=== PATIENT | male | born 1980 | race Caucasian/White ===

== ENCOUNTER 2016-03-28 10:09 | Emergency (ER) | payer OTHER ==
[~2016-03-28 10:09] MED LIST: BIAXIN500 M1 PO; CLEOCIN HCL300 MG PO; CLINDAMYCIN HC300 M1 PO; CLINDAMYCIN HY300 MG PO; DICLOFENAC POTA50 M1 PO; FLEXERIL10 MG PO; GUAIFENESIN-COD10 ML PO; HYDROCODONE/ACE1 TA1 PO; IBUPROFEN600 MG PO; IBUPROFEN800 M1 PO; IBUPROFEN800 MG PO; MEDROL4 M2 PO; MOBIC 15MG15 MG PO; MULTIVITAMIN1 TAB PO; NORCO 5-325 TA1 EACH PO; PERCOCET 325 MG-5 MG PO; PERCOCET 325 MG1 TA2 PO; PERCOCET 5-3251 EACH PO; TRAMADOL50 MG PO; VENTOLIN HFA18 GM INH; VICODIN 300 MG-1 TAB PO
--- NOTE | 2016-03-28 10:29 | ED MVC/FALL/TRAUMA COMPLAINT ---
History of Present Illness General Chief Complaint: Fall Stated Complaint: FALL/LBP RT ANKLE PAIN Source: patient Exam Limitations: no limitations Vital Signs & Intake/Output Vital Signs & Intake/Output Vital Signs Date Time Temp Pulse Resp B/P Pulse O2 O2 Flow FiO2 Ox Delivery Rate 03/28 1154 86 120/84 03/28 1014 88 16 118/82 98 Room Air Allergies Coded Allergies: venom-honey bee (bee venom (honey bee)) (Severe, UNKNOWN 07/15/15) amoxicillin (UNKNOWN 07/15/15) tramadol (10/12/15) Reconcile Medications Clindamycin HCl 300 MG CAPSULE 1 CAP PO 4 TIMES/DAY infection Clindamycin HCl 300 MG CAPSULE 1 CAP PO 4 TIMES/DAY infection Cyclobenzaprine HCl 10 MG TABLET 1 TAB PO QPM PRN MUSCLE sPASM Hydrocodone/Acetaminophen ([place] 5-325 Tablet) 1 EACH TABLET 1-2 TAB PO Q4-6 PRN PRN PAIN ten...[id number] Ibuprofen 800 MG TABLET 1 TAB PO TID PRN PAIN Ibuprofen 800 MG TABLET 1 TAB PO 4 TIMES/DAY pain Oxycodone HCl/Acetaminophen (Percocet 5-325 MG Tablet) 5 MG-325 MG TABLET 1 TAB PO BID PRN PAIN Oxycodone HCl/Acetaminophen (Percocet 5-325 MG Tablet) 1 EACH TABLET 1 TAB PO 4XDP PRN PAIN TEN...[id number] Triage Note: TRIAGE; PT TO ED S/P SLIP AND FALL ONTO HIS LOWER BACK. DENIES ANY HEAD STRIKE OR LOC. STATES PAIN IS WORSE WITH MOVEMENT. USING MOTRIN WITH NO RELIEF. Triage Nurses Notes Reviewed? yes HPI: 35-year-old male who [facility] a fall that occurred yesterday while walking on ice. He reports he slipped and fell onto his back and twisting his right foot. He is complaining of low back pain, aching sensation. He denies any numbness and tingling or incontinence issues. He rates the pain in his low back at 10 on a 10 worse with bending, twisting. He is also reporting right foot pain worse with palpation and movement. He can ambulate but is hard to put pressure on his foot. Pain is an achy sensation same 10 out of 10 (KARIME UREÑA,JOHN) Past History Travel History Traveled to [place] past 21 day No Medical History Any Pertinent Medical History? 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 No (JOHN SCHAFFER APRN) Review of Systems Review of Systems Constitutional: Reports: no symptoms. Eyes: Reports: no symptoms. Ears, Nose, Throat, Mouth: Reports: no symptoms. Respiratory: Reports: no symptoms. Cardiovascular: Reports: no symptoms. Gastrointestinal/Abdominal: Reports: no symptoms. Genitourinary: Reports: no symptoms. Musculoskeletal: Reports: see HPI, back pain, joint pain. Skin: Reports: no symptoms. Neurological/Psychological: Reports: no symptoms. All Other Systems: Reviewed and Negative (JOHN SCHAFFER APRN) Physical Exam Physical Exam General Appearance: well developed/nourished, alert, awake, mild distress Head: atraumatic, normal appearance Eyes: Bilateral: normal appearance, PERRL, EOMI. Ears, Nose, Throat, Mouth: hearing grossly normal, moist mucous membrane, Tympanic normal Neck: normal inspection, supple, full range of motion, normal alignment Respiratory: normal breath sounds, chest non-tender, no respiratory distress Cardiovascular: regular rate/rhythm Peripheral Pulses: 2+ radial (R), 2+ radial (L) Gastrointestinal: normal bowel sounds, soft, non-tender Back: normal inspection, decreased range of motion, muscle spasm, no vertebral tenderness Extremities: right foot see diagram Neurologic/Psych: no motor/sensory deficits, awake, alert, oriented x 3, normal gait, normal mood/affect Skin: intact, normal color, warm/dry Diagram Feet, Bilateral: 1) Erythema, tenderness Core Measures ACS in differential dx? No Severe Sepsis Present: No Septic Shock Present: No (JOHN SCHAFFER APRN) Progress Differential Diagnosis: C/T/L spine injury, ext injury Plan of Care: Percocet given for pain 1, xrays done which were negative. Diagnostic Imaging: Viewed by Me: Radiology Read. Discussed w/RAD: Radiology Read. Radiology Impression: no fracture, no dislocation, no foreign body seen, see results below. Comments: PATIENT: SAMUEL YAO PRESENT AGE: 35 PATIENT ACCOUNT NO: [id number] : 80 LOCATION: [facility] ORDERING PHYSICIAN: JOHN SCHAFFER APRN SERVICE DATE: 03/28/16 EXAM TYPE: RAD - XRY-FOOT COMPLETE, R EXAMINATION: RIGHT FOOT 3 VIEWS CLINICAL INFORMATION: Right foot pain. COMPARISON: None. TECHNIQUE: AP, lateral, oblique views of the right foot were obtained. FINDINGS: There are no fractures or dislocations. There is no significant soft tissue swelling. No ankle joint effusion is identified. IMPRESSION: Unremarkable right foot radiographs. DICTATED BY: KACY LLOYD MD DATE/TIME DICTATED:03/28/161118 PROPOSAL DEVELOPMENT MANAGER:JEFF DATE/TIME TRANSCRIBED:03/28/161118 CONFIDENTIAL, DO NOT COPY WITHOUT APPROPRIATE AUTHORIZATION. <Electronically signed in Other Vendor System> SIGNED BY: KACY LLOYD MD 03/28/161122 PATIENT: SAMUEL YAO PRESENT AGE: 35 PATIENT ACCOUNT NO: [id number] : 80 LOCATION: [facility] ORDERING PHYSICIAN: JOHN SCHAFFER APRN SERVICE DATE: 03/28/16 EXAM TYPE: RAD - XRY-LUMBOSACRAL SPINE 4 VIEWS EXAMINATION: LUMBOSACRAL SPINE 3 VIEWS CLINICAL INFORMATION: Low back pain after fall. COMPARISON: None. TECHNIQUE: AP, lateral, spot lateral views of the lumbosacral spine are provided. FINDINGS: There are no fractures. The lumbar vertebrae are in normal alignment. Disc heights and vertebral body heights are well-preserved. IMPRESSION: Unremarkable lumbosacral spine series. DICTATED BY: KACY LLOYD MD DATE/TIME DICTATED:03/28/161116 PROPOSAL DEVELOPMENT MANAGER:JEFF DATE/TIME TRANSCRIBED:03/28/161116 CONFIDENTIAL, DO NOT COPY WITHOUT APPROPRIATE AUTHORIZATION. <Electronically signed in Other Vendor System> SIGNED BY: KACY LLOYD MD 03/28/161120 (JOHN SCHAFFER APRN) Departure Departure Time of Disposition: 1148 Disposition: HOME OR SELF CARE Condition: Stable Clinical Impression Primary Impression: Right foot sprain Qualifiers: Encounter type: initial encounter Qualified Code: S93.601A - Unspecified sprain of right foot, initial encounter Secondary Impressions: Low back pain Qualifiers: Chronicity: acute Back pain laterality: bilateral Sciatica presence : without sciatica Qualified Code: M54.5 - Low back pain Referrals: DIOGO TOTH,RC LI MD,MASON Molina Additional Instructions: Please use ibuprofen 800 mg 3 times a day has needed for mild to moderate pain please take with food. Use Percocet as needed for more severe pain. Please use Flexeril at night for muscle spasms IN back. Please do not drive or operate heavy machinery while taking the Flexeril or Percocet. Please use ice to right foot 3-4 times a day for the next 3 days. Please follow-up with Dr. Li or Dr. Rojas this coming week. Return to the emergency department for any increased pain, swelling to right foot or increased pain to back along with numbness tingling in legs. Or any concerning symptoms. Departure Forms: Customer Survey General Discharge Information Prescriptions: Current Visit Scripts Cyclobenzaprine HCl 1 TAB PO QPM PRN MUSCLE sPASM #10 TAB Oxycodone HCl/Acetaminophen (Percocet 5-325 MG Tablet) 1 TAB PO BID PRN PAIN #10 TAB Ibuprofen 1 TAB PO TID PRN PAIN #30 TAB (JOHN SCHAFFER APRN) PA/CONSULTING UTILITY FORESTER Co-Sign Statement Statement: ED Attending supervision documentation- [] I saw and evaluated the patient. I have also reviewed all the pertinent lab results and diagnostic results. I agree with the findings and the plan of care as documented in the PA's/CONSULTING UTILITY FORESTER's documentation. x I have reviewed the ED Record and agree with the PA's/CONSULTING UTILITY FORESTER's documentation. [] Additions or exceptions (if any) to the PAs/CONSULTING UTILITY FORESTER's note and plan are summarized below: [] (BREONNA TOTH,RACHID)
--- NOTE | 2016-03-28 11:21 | RADIOLOGY REPORT ---
EXAMINATION: LUMBOSACRAL SPINE 3 VIEWS CLINICAL INFORMATION: Low back pain after fall. COMPARISON: None. TECHNIQUE: AP, lateral, spot lateral views of the lumbosacral spine are provided. FINDINGS: There are no fractures. The lumbar vertebrae are in normal alignment. Disc heights and vertebral body heights are well-preserved. IMPRESSION: Unremarkable lumbosacral spine series.
--- NOTE | 2016-03-28 11:23 | RADIOLOGY REPORT ---
EXAMINATION: RIGHT FOOT 3 VIEWS CLINICAL INFORMATION: Right foot pain. COMPARISON: None. TECHNIQUE: AP, lateral, oblique views of the right foot were obtained. FINDINGS: There are no fractures or dislocations. There is no significant soft tissue swelling. No ankle joint effusion is identified. IMPRESSION: Unremarkable right foot radiographs.
[2016-03-28] MEDS ORDERED: IBUPROFEN800 M1 PO (11:48)
[2016-03-28] MEDS ORDERED: CYCLOBENZAPRINE10 M1 PO (11:48)
[2016-03-28] MEDS ORDERED: PERCOCET 5-3251 EACH PO (11:48)
[2016-03-28 11:54] VITALS: BP 120/84
== END 2016-03-28 11:54 ==
LOC: ERH 10:09
DX: S93.601A Unspecified sprain of right foot, initial encounter (principal); M54.5 Low back pain; W00.0XXA Fall on same level due to ice and snow, initial encounter
CPT/HCPCS: 72110; 73630-RT

== ENCOUNTER 2016-04-10 00:59 | Emergency (ER) | payer OTHER ==
[~2016-04-10 00:59] MED LIST changes: +CYCLOBENZAPRINE10 M1 PO
[2016-04-10] MEDS ORDERED: IBUPROFEN800 M1 PO (03:07)
[2016-04-10] MEDS ORDERED: PERCOCET 5-3251 EACH PO (03:07)
[2016-04-10] MEDS ORDERED: BACLOFEN10 M1 PO (03:07)
--- NOTE | 2016-04-10 03:09 | ED NECK/BACK PAIN COMPLAINT ---
History of Present Illness General Chief Complaint: Low Back Pain/Injury Stated Complaint: BACK PAIN "IT'S KILLING ME SEEN HERE BEFORE" Source: patient, old records Exam Limitations: no limitations Vital Signs & Intake/Output Vital Signs & Intake/Output Vital Signs Date Time Temp Pulse Resp B/P Pulse O2 O2 Flow FiO2 Ox Delivery Rate 04/10 0130 97 Room Air 04/10 0121 98.0 77 20 132/87 97 Room Air Allergies Coded Allergies: venom-honey bee (bee venom (honey bee)) (Severe, UNKNOWN 04/10/16) amoxicillin (UNKNOWN 04/10/16) tramadol (04/10/16) Reconcile Medications No Known Home Medications Triage Note: TRIAGE: PATIENT TO ER FROM HOME REPORTING +LOW BACK INTO L BUTT/THIGH PAIN S/P SLIP AND FAL OF ICE FEWS WEEKS AGO. REPORTS "HAD AN XRAY AND IT WAS NEGATIVE, BUT LIFTED STUFF TODAY AND NOW IT'S MUCH WORSE." ICE PACK IN PLACE. AWAITING MD NAZARIO. Triage Nurses Notes Reviewed? yes Onset: Last week Duration: week(s):, constant, continues in ED Timing: recent history Quality/Severity: moderate, radiation Location: lumbar spine, paraspinous muscles Radiation: buttocks Context: fall/near fall Method of Injury: fall Loss of Consciousness: no loss of consciousness Modifying Factors: movement, pain medication Associated Symptoms: lower back pain, muscle spasm HPI: Less than 2 weeks prior to admission patient slipped on the ice and fell on his back. He was seen in the ED with negative x-rays. The sharp moderate pain persists worse with movement turning bending moderate to severe with radiation to his left buttock. he denies fever chills nausea vomiting diarrhea abdominal pain chest pain shortness breath headache dysuria rash bleeding change in motor sensory function change in bowel bladder habit Past History Travel History Traveled to [place] past 21 day No Medical History Any Pertinent Medical History? 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 No Review of Systems Review of Systems Constitutional: Reports: no symptoms. Eyes: Reports: no symptoms. Ears, Nose, Throat, Mouth: Reports: no symptoms. Respiratory: Reports: no symptoms. Cardiovascular: Reports: no symptoms. Gastrointestinal/Abdominal: Reports: no symptoms. Musculoskeletal: Reports: see HPI, back pain. Skin: Reports: no symptoms. Neurological/Psychological: Reports: no symptoms. All Other Systems: Reviewed and Negative Physical Exam Physical Exam General Appearance: well developed/nourished, alert, awake, anxious, mild distress Head: atraumatic Eyes: Bilateral: PERRL, EOMI. Ears, Nose, Throat, Mouth: hearing grossly normal Neck: normal inspection, supple, full range of motion, normal alignment Respiratory: normal breath sounds Cardiovascular: regular rate/rhythm Peripheral Pulses: 4+ carotid (R), 4+ carotid (L) Gastrointestinal: normal bowel sounds, soft, non-tender, no organomegaly Back: normal inspection, decreased range of motion, muscle spasm, no vertebral tenderness Extremities: non-tender, normal range of motion Straight Leg Raising: Right: Pain at ____ degrees (10). Left: Pain at ____ degrees (10). Sensory: Medial Le: L4R, L4L. Top of Foot: 2: L5R, L5L. Sole of Foot: 2: SIR, CY. Motor: Deficit L4 Right: No Deficit L4 Left: No Deficit L5 Right: No Deficit L5 Left: No Deficit S1 Right: No Deficit S1 Right: No DTR: Deficit L4 Left: No Deficit L4 Right: No Deficit S1 Left: No Deficit S1 Right: No Patellar: 3: L4 Right, L4 Left. Neurologic/Psych: awake, alert, oriented x 3, normal mood/affect Skin: intact, normal color, warm/dry Progress Differential Diagnosis: herniated disc, myofascial strain, sciatica Plan of Care: Analgesia muscle relaxant Departure Departure Time of Disposition: 305 Disposition: HOME OR SELF CARE Condition: Stable Clinical Impression Primary Impression: Lumbar back pain Qualifiers: Chronicity: acute Back pain laterality: left Sciatica presence: with sciatica Sciatica laterality: sciatica of left side Qualified Code: M54.42 - Lumbago with sciatica, left side Referrals: PATIENT HAS NO PRIMARY CARE DR (PCP/Family) Departure Forms: Customer Survey General Discharge Information Prescriptions: Current Visit Scripts Baclofen 1-2 TAB PO TID PRN muscle strain #30 TAB Oxycodone HCl/Acetaminophen (Percocet 5-325 MG Tablet) 1 TAB PO Q6P PRN severe pain #10 TAB Ibuprofen 1 TAB PO Q6PRN PRN pain #50 TAB
[2016-04-10 03:12] VITALS: BP 128/85
== END 2016-04-10 03:14 ==
LOC: ERH 00:59
DX: M54.5 Low back pain (principal)

== ENCOUNTER 2016-05-14 10:41 | Emergency (ER) | payer OTHER ==
[~2016-05-14] VITALS: Ht 176.5 cm; Wt 85.3 kg
[~2016-05-14 10:41] MED LIST changes: +BACLOFEN10 M1 PO
[2016-05-14 10:49] VITALS: BP 136/86
[2016-05-14] MEDS ORDERED: CLEOCIN HCL300 M1 PO (11:27)
[2016-05-14] MEDS ORDERED: NORCO 5-325 TA1 EACH PO (11:27)
--- NOTE | 2016-05-14 11:28 | ED THROAT/DENTAL COMPLAINT ---
History of Present Illness General Chief Complaint: Sore Throat, Dental Pain Stated Complaint: DENTAL PAIN Source: patient Exam Limitations: no limitations Vital Signs & Intake/Output Vital Signs & Intake/Output Vital Signs Date Time Temp Pulse Resp B/P Pulse O2 O2 Flow FiO2 Ox Delivery Rate 05/14 1049 97.8 100 20 136/86 98 Room Air Allergies Coded Allergies: venom-honey bee (bee venom (honey bee)) (Severe, UNKNOWN 04/10/16) amoxicillin (UNKNOWN 04/10/16) tramadol (04/10/16) Reconcile Medications Baclofen 10 MG TABLET 1-2 TAB PO TID PRN muscle strain Clindamycin HCl (Cleocin HCl) 300 MG CAPSULE 1 CAP PO TID infection Hydrocodone/Acetaminophen ([place] 5-325 Tablet) 5 MG-325 MG TABLET 1 TAB PO 4 TIMES/DAY PRN pain Ibuprofen 800 MG TABLET 1 TAB PO Q6PRN PRN pain Oxycodone HCl/Acetaminophen (Percocet 5-325 MG Tablet) 5 MG-325 MG TABLET 1 TAB PO Q6P PRN severe pain Triage Note: PT C/O TOOTHACHE AND CAN'T SEE THE DENTIST UNTIL WEDNESDAY Triage Nurses Notes Reviewed? yes HPI: 36-year-old male with chronic dental problems presents to the ER with complaints of left lower anterior dental pain, swelling of his gums. He has no nausea no vomiting no fever no fluid symptoms. She said pain started 3 days ago. He is taking noad-kru-unoitsd medication without relief. He has history of abscesses and multiple dental extractions. He has an appointment to see his dentist on Wednesday. Pain is severe throbbing aching. Past History Travel History Traveled to [place] past 21 day No Medical History Any Pertinent Medical History? 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 No Review of Systems Review of Systems Constitutional: Reports: see HPI. EENTM: Reports: see HPI. Respiratory: Reports: no symptoms. Cardiovascular: Reports: no symptoms. GI: Reports: no symptoms. Genitourinary: Reports: no symptoms. Musculoskeletal: Reports: no symptoms. Skin: Reports: no symptoms. Neurological/Psychological: Reports: no symptoms. Hematologic/Endocrine: Reports: no symptoms. Immunologic/Allergic: Reports: no symptoms. All Other Systems: Reviewed and Negative Physical Exam Physical Exam Mouth/Throat: very poor dentition, multiple carious teeth. Multiple dental extractions noted. No abscesses. Gingival inflammation noted moderate to severe in the lower anterior region mostly on the left side where patient's correlation of pain is. Neck: normal inspection, supple, full range of motion Cardiovascular/Respiratory: normal breath sounds, regular rate/rhythm Comments: Well-developed well-nourished no apparent distress. HEENT: Atraumatic, extraocular motion intact Neck: Supple, no lymphadenopathy Back: Nontender Respiratory: No respiratory distress Extremities: No edema, full range of motion Neuro: Alert and oriented x3 Psych: Mood affect normal, normal memory normal judgment. Skin: Warm and dry, no rash on exposed skin Core Measures ACS in differential dx? No Severe Sepsis Present: No Septic Shock Present: No Progress Differential Diagnosis: aspirated tooth, carious tooth, epiglottitis, Ludwigs angina, meningitis, odontogenic abscess, arvin-tonsillar abscess, pharyngeal for. body, stomatitis/gingivitis, strep pharyngitis, tooth fracture Plan of Care: dental follow-up antibiotics pain medication Departure Departure Disposition: HOME OR SELF CARE Condition: Stable Clinical Impression Primary Impression: Dental caries Referrals: PATIENT HAS NO PRIMARY CARE DR (PCP/Family) Additional Instructions: follow-up with your dentist on Wednesday as scheduled. Take antibiotics for infection. Take hydrocodone for pain as needed Motrin , Advil or Aleve as needed for pain. Return with worsening swelling, redness, pain, fever or flulike illness. Departure Forms: Customer Survey General Discharge Information Prescriptions: Current Visit Scripts Clindamycin HCl (Cleocin HCl) 1 CAP PO TID #21 CAP Hydrocodone/Acetaminophen ([place] 5-325 Tablet) 1 TAB PO 4 TIMES/DAY PRN pain #12 TAB
== END 2016-05-14 11:33 ==
LOC: ERH 10:41
DX: K02.9 Dental caries, unspecified (principal)

== ENCOUNTER 2016-05-19 11:42 | Emergency (ER) | payer OTHER ==
[~2016-05-19 11:42] MED LIST changes: +CLEOCIN HCL300 M1 PO
[2016-05-19 11:48] VITALS: BP 132/87
[2016-05-19] MEDS ORDERED: PERCOCET 5-3251 EACH PO (12:54)
--- NOTE | 2016-05-19 12:54 | ED THROAT/DENTAL COMPLAINT ---
History of Present Illness General Chief Complaint: Sore Throat, Dental Pain Stated Complaint: DENTAL PAIN Source: patient Exam Limitations: no limitations Vital Signs & Intake/Output Vital Signs & Intake/Output Vital Signs Date Time Temp Pulse Resp B/P Pulse O2 O2 Flow FiO2 Ox Delivery Rate 05/19 1148 98.1 82 16 132/87 97 Room Air Allergies Coded Allergies: venom-honey bee (bee venom (honey bee)) (Severe, UNKNOWN 04/10/16) amoxicillin (UNKNOWN 04/10/16) tramadol (04/10/16) Reconcile Medications Baclofen 10 MG TABLET 1-2 TAB PO TID PRN muscle strain Clindamycin HCl (Cleocin HCl) 300 MG CAPSULE 1 CAP PO TID infection Hydrocodone/Acetaminophen ([place] 5-325 Tablet) 5 MG-325 MG TABLET 1 TAB PO 4 TIMES/DAY PRN pain Ibuprofen 800 MG TABLET 1 TAB PO Q6PRN PRN pain Oxycodone HCl/Acetaminophen (Percocet 5-325 MG Tablet) 5 MG-325 MG TABLET 1-2 TAB PO Q6P PRN pain Oxycodone HCl/Acetaminophen (Percocet 5-325 MG Tablet) 5 MG-325 MG TABLET 1 TAB PO Q6P PRN severe pain Triage Note: TRIAGE; PT TO ED C/O PAIN TO TOOTH. WAS HERE A FEW DAYS AGO FOR SA[facility] AND GOT PAIN MEDS, SAW DENTIST ON WEDNESDAY AND INJECTED ANTIBIOTICS. STATES RAN OUT OF PAIN MEDS AND STILL IN PAIN. Triage Nurses Notes Reviewed? yes Onset: Abrupt Duration: day(s):, constant, continues in ED Timing: recent history Injury Environment: home Severity: severe HPI: 36-year-old male comes into the emergency room her front lower dental pain has been going on for days. Sharp. Throbbing. Continuous. Denies any fever or chills. Denies any other associated symptoms. Patient saw his dentist as past Wednesday supposed to be getting work done. Patient is currently on erythromycin. (ALVIN CULLEN) Past History Travel History Traveled to [place] past 21 day No Medical History Any Pertinent Medical History? 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 No (ALVIN CULLEN) Review of Systems Review of Systems Constitutional: Reports: no symptoms. EENTM: Reports: see HPI. Respiratory: Reports: no symptoms. Cardiovascular: Reports: no symptoms. GI: Reports: no symptoms. Genitourinary: Reports: no symptoms. Musculoskeletal: Reports: no symptoms. Skin: Reports: no symptoms. Neurological/Psychological: Reports: no symptoms. Hematologic/Endocrine: Reports: no symptoms. Immunologic/Allergic: Reports: no symptoms. All Other Systems: Reviewed and Negative (ALVIN CULLEN) Physical Exam Physical Exam General Appearance: well developed/nourished, no apparent distress, alert, awake Head: atraumatic, normal appearance Eyes: Bilateral: normal appearance, EOMI. Ears: Bilateral: canal normal. Nose: normal inspection Mouth/Throat: poor dentition, dental caries, pain to lower front incisors and lateral incisors Neck: normal inspection Cardiovascular/Respiratory: no respiratory distress Back: normal range of motion Neurologic/Psych: awake, alert, oriented x 3, normal gait Skin: intact, normal color Core Measures ACS in differential dx? No Severe Sepsis Present: No Septic Shock Present: No (ALVIN CULLEN) Progress Differential Diagnosis: aspirated tooth, carious tooth, epiglottitis, Ludwigs angina, meningitis, odontogenic abscess, arvin-tonsillar abscess, pharyngeal for. body, stomatitis/gingivitis, strep pharyngitis, tooth fracture Plan of Care: 05/19/2016 1:53:45 PM Follow-up with dentist. Return if any other concerns. (ALVIN CULLEN) Departure Departure Disposition: HOME OR SELF CARE Condition: Stable Clinical Impression Primary Impression: Pain, dental Referrals: PATIENT HAS NO PRIMARY CARE DR (PCP/Family) Additional Instructions: Take Percocet for pain. Follow-up with her dentist. Return if any concerns worsening symptoms. Please go over all results of today's visit with your primary care doctor. Contact your primary care doctor to let them know you were here in the emergency room. There may be nonspecific findings which may not be related to your visit today here in the emergency room but may require further evaluation and chronic monitoring by your primary care doctor. If you had a laceration today the chance of foreign body always remains. You should follow-up with your primary care doctor for recheck in 3-5 days for a wound check. If you had an x-ray done there is a chance that a fracture could have been missed on initial read and you should follow-up with your primary care doctor for repeat x-rays if symptoms persist. If your blood pressure was elevated here in the emergency room please have rechecked by her primary care doctor within the next 48 hours by your primary care doctor. If you were prescribed a narcotic here in the emergency room or any type of controlled substances you're not allowed to drive while taking this medication or operate any type of heavy machinery. Narcotics can make you feel lightheaded dizziness nausea and can cause constipation. You may need to orange picker a stool softener. Thank you for choosing [facility] emergency room. Please return to the emergency room immediately if you have any other concerns worsening of symptoms. Departure Forms: Customer Survey General Discharge Information Prescriptions: Current Visit Scripts Oxycodone HCl/Acetaminophen (Percocet 5-325 MG Tablet) 1-2 TAB PO Q6P PRN pain #10 TAB (ALVIN CULLEN) PA/SMELLER Co-Sign Statement Statement: ED Attending supervision documentation- [] I saw and evaluated the patient. I have also reviewed all the pertinent lab results and diagnostic results. I agree with the findings and the plan of care as documented in the PA's/SMELLER's documentation. x I have reviewed the ED Record and agree with the PA's/SMELLER's documentation. [] Additions or exceptions (if any) to the PAs/SMELLER's note and plan are summarized below: [] (BREONNA TOTH,RACHID)
== END 2016-05-19 12:59 ==
LOC: ERH 11:42
DX: K08.89 Other specified disorders of teeth and supporting structures (principal)

== ENCOUNTER 2016-07-13 08:37 | Emergency (ER) | payer OTHER ==
[~2016-07-13] VITALS: Ht 175.3 cm; Wt 83.9 kg
[2016-07-13 08:41] VITALS: BP 151/86
--- NOTE | 2016-07-13 09:42 | ED THROAT/DENTAL COMPLAINT ---
History of Present Illness General Chief Complaint: Sore Throat, Dental Pain Stated Complaint: TOOTH PAIN Source: patient, old records Exam Limitations: no limitations Vital Signs & Intake/Output Vital Signs & Intake/Output Vital Signs Date Time Temp Pulse Resp B/P B/P Pulse O2 O2 Flow FiO2 Mean Ox Delivery Rate 07/13 0841 96.0 80 18 151/86 98 Room Air (RACHID RAVI MD) Allergies Coded Allergies: venom-honey bee (bee venom (honey bee)) (Severe, UNKNOWN 04/10/16) amoxicillin (UNKNOWN 04/10/16) tramadol (04/10/16) Reconcile Medications Baclofen 10 MG TABLET 1-2 TAB PO TID PRN muscle strain Clindamycin HCl (Cleocin HCl) 300 MG CAPSULE 1 CAP PO TID infection Hydrocodone/Acetaminophen ([place] 5-325 Tablet) 5 MG-325 MG TABLET 1 TAB PO 4 TIMES/DAY PRN pain Ibuprofen 800 MG TABLET 1 TAB PO Q6PRN PRN pain Oxycodone HCl/Acetaminophen (Percocet 5-325 MG Tablet) 5 MG-325 MG TABLET 1-2 TAB PO Q6P PRN pain Oxycodone HCl/Acetaminophen (Percocet 5-325 MG Tablet) 5 MG-325 MG TABLET 1 TAB PO Q6P PRN severe pain Core Measure Meds Pre-Hospital antibiotics Triage Note: 36 YO MALE TO TRIAGE C/O TOOTHACHE, STATES HE IS DUE TO HAVE ALL HIS TEETH REMOVED ON 07/21 BUT THE PAIN IS TO BAD TO WAIT. Triage Nurses Notes Reviewed? yes Onset: Last week Duration: week(s):, constant, continues in ED Timing: recent history Injury Environment: home Severity: severe Modifying Factors: Improves With: medication. Worsens With: cold therapy, eating, movement. HPI: Patient reports chronic poor dentition currently on antibiotics and NSAIDs with planned for extraction July 21. He denies fever chills nausea vomiting diarrhea abdominal pain chest pain shortness breath headache dysuria rash bleeding Past History Travel History Traveled to [place] past 21 day No Medical History Any Pertinent Medical History? 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 No Review of Systems Review of Systems Constitutional: Reports: no symptoms. EENTM: Reports: tooth pain. Respiratory: Reports: no symptoms. Cardiovascular: Reports: no symptoms. GI: Reports: no symptoms. Genitourinary: Reports: no symptoms. Musculoskeletal: Reports: no symptoms. Skin: Reports: no symptoms. Neurological/Psychological: Reports: no symptoms. Hematologic/Endocrine: Reports: no symptoms. Immunologic/Allergic: Reports: no symptoms. All Other Systems: Reviewed and Negative Physical Exam Physical Exam General Appearance: well developed/nourished, alert, awake, anxious, moderate distress Head: atraumatic, normal appearance Eyes: Bilateral: normal appearance, PERRL, EOMI. Ears: Bilateral: canal normal, Tympanic normal. 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 No Severe Sepsis Present: No Septic Shock Present: No Progress Differential Diagnosis: aspirated tooth, carious tooth, odontogenic abscess Plan of Care: analgesia Departure Departure Time of Disposition: 952 Disposition: HOME OR SELF CARE Condition: Stable Clinical Impression Primary Impression: Dental caries extending into pulp Secondary Impressions: Gingivitis, acute Referrals: PATIENT HAS NO PRIMARY CARE DR (PCP/Family) Additional Instructions: Follow up with [facility] as scheduled July 21 Departure Forms: Customer Survey General Discharge Information Prescriptions: Current Visit Scripts Ibuprofen 1 TAB PO Q6PRN PRN pain #50 TAB with food Oxycodone HCl/Acetaminophen (Percocet 5-325 MG Tablet) 1-2 TAB PO 4 TIMES/DAY PRN severe pain #20 TAB
[2016-07-13] MEDS ORDERED: IBUPROFEN600 M1 PO (09:55)
[2016-07-13] MEDS ORDERED: PERCOCET 5-3251 EACH PO (09:55)
== END 2016-07-13 10:09 ==
LOC: ERH 08:37
DX: K02.9 Dental caries, unspecified (principal); K05.00 Acute gingivitis, plaque induced

== ENCOUNTER 2016-08-05 22:38 | Emergency (ER) | payer OTHER ==
[~2016-08-05 22:38] MED LIST changes: +IBUPROFEN600 M1 PO
[2016-08-05 22:43] VITALS: BP 156/89
--- NOTE | 2016-08-05 23:49 | ED THROAT/DENTAL COMPLAINT ---
History of Present Illness General Chief Complaint: Sore Throat, Dental Pain Stated Complaint: TOOTH ACHE Source: patient Exam Limitations: no limitations Vital Signs & Intake/Output Vital Signs & Intake/Output Vital Signs Date Time Temp Pulse Resp B/P B/P Pulse O2 O2 Flow FiO2 Mean Ox Delivery Rate 08/05 2243 98.6 88 20 156/89 99 ED Intake and Output 08/06 0000 08/05 1200 Intake Total Output Total Balance Patient 185 lb Weight Allergies Coded Allergies: venom-honey bee (bee venom (honey bee)) (Severe, UNKNOWN 04/10/16) amoxicillin (UNKNOWN 04/10/16) tramadol (04/10/16) Reconcile Medications Baclofen 10 MG TABLET 1-2 TAB PO TID PRN muscle strain Clindamycin HCl 300 MG CAPSULE 1 CAP PO 4 TIMES/DAY infection x 10 days Clindamycin HCl (Cleocin HCl) 300 MG CAPSULE 1 CAP PO TID infection Hydrocodone/Acetaminophen ([place] 5-300 MG Tablet) 5 MG-300 MG TABLET 1 TAB PO TID PRN pain eight... [id number] Hydrocodone/Acetaminophen ([place] 5-325 Tablet) 5 MG-325 MG TABLET 1 TAB PO 4 TIMES/DAY PRN pain Ibuprofen 800 MG TABLET 1 TAB PO TID PRN pain Ibuprofen 800 MG TABLET 1 TAB PO Q6PRN PRN pain Ibuprofen 600 MG TABLET 1 TAB PO Q6PRN PRN pain with food Oxycodone HCl/Acetaminophen (Percocet 5-325 MG Tablet) 5 MG-325 MG TABLET 1-2 TAB PO Q6P PRN pain Oxycodone HCl/Acetaminophen (Percocet 5-325 MG Tablet) 5 MG-325 MG TABLET 1 TAB PO Q6P PRN severe pain Oxycodone HCl/Acetaminophen (Percocet 5-325 MG Tablet) 5 MG-325 MG TABLET 1-2 TAB PO 4 TIMES/DAY PRN severe pain Triage Note: PER PT SEEN 2 WEEKS AGO FOR TOOTHACHE MUST WAIT 3 WEEKS FOR INSURANCE COVERAGE FOR ROOT CANAL GOT VICODIN AND CLINDAMYCIN Triage Nurses Notes Reviewed? yes Onset: Gradual Duration: week(s):, waxing and waning Timing: recent history Injury Environment: home Severity: moderate Modifying Factors: Improves With: medication. Associated Symptoms: dental pain, swelling HPI: 36 yo gentleman presents with recurrence of dental pain in his left lower frontal teeth and gums. He shares that he is scheduled for a dentist in next wednesday, "I got better with the meds before, but then the pain came back." He notes no difficulty swallowing or other issues. He is otherwise well. Past History Travel History Traveled to [place] past 21 day No Medical History Any Pertinent Medical History? 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 No Review of Systems Review of Systems Constitutional: Reports: no symptoms. EENTM: Reports: no symptoms. Respiratory: Reports: no symptoms. Cardiovascular: Reports: no symptoms. GI: Reports: no symptoms. Genitourinary: Reports: no symptoms. Musculoskeletal: Reports: no symptoms. Skin: Reports: no symptoms. Neurological/Psychological: Reports: no symptoms. Hematologic/Endocrine: Reports: no symptoms. Immunologic/Allergic: Reports: no symptoms. All Other Systems: Reviewed and Negative Physical Exam Physical Exam General Appearance: well developed/nourished, mild distress Head: atraumatic, normal appearance Eyes: Bilateral: normal appearance. Ears: Bilateral: canal normal. Nose: normal inspection Mouth/Throat: left lower dental tenderness and inflammation to palpation. Neck: normal inspection Neurologic/Psych: no motor/sensory deficits, awake, alert, oriented x 3 Core Measures ACS in differential dx? No Severe Sepsis Present: No Septic Shock Present: No Progress Differential Diagnosis: dental infection gingivitis abscess vs other. Plan of Care: abx/pain meds... encouraged close follow up with dentist Departure Departure Disposition: HOME OR SELF CARE Condition: Stable Clinical Impression Primary Impression: Toothache Secondary Impressions: Dental infection Referrals: PATIENT HAS NO PRIMARY CARE DR (PCP/Family) Departure Forms: Customer Survey General Discharge Information Prescriptions: Current Visit Scripts Clindamycin HCl 1 CAP PO 4 TIMES/DAY #40 CAP x 10 days Hydrocodone/Acetaminophen (Vicodin 5-300 MG Tablet) 1 TAB PO TID PRN pain #8 TAB eight... [id number] Ibuprofen 1 TAB PO TID PRN pain #30 TAB
[2016-08-06] MEDS ORDERED: CLINDAMYCIN HC300 M1 PO (00:02)
[2016-08-06] MEDS ORDERED: VICODIN 5-3001 EACH PO (00:02)
[2016-08-06] MEDS ORDERED: IBUPROFEN800 M1 PO (00:02)
== END 2016-08-06 00:17 ==
LOC: ERH 22:38
DX: K08.89 Other specified disorders of teeth and supporting structures (principal); K04.7 Periapical abscess without sinus

== ENCOUNTER 2017-02-10 22:02 | Emergency (ER) | payer OTHER ==
[~2017-02-10 22:02] MED LIST changes: +VICODIN 5-3001 EACH PO
[2017-02-10 22:07] VITALS: BP 156/78
--- NOTE | 2017-02-10 23:13 | ED HEAD/FACIAL INJ COMPLAINT ---
History of Present Illness General Chief Complaint: Laceration Procedure Stated Complaint: L EYEBROW LAC, L RIB PAIN Source: patient, old records Exam Limitations: no limitations Vital Signs & Intake/Output Vital Signs & Intake/Output Vital Signs Date Time Temp Pulse Resp B/P B/P Pulse O2 O2 Flow FiO2 Mean Ox Delivery Rate 02/10 2207 89 20 156/78 99 Allergies Coded Allergies: venom-honey bee (bee venom (honey bee)) (Severe, UNKNOWN 04/10/16) amoxicillin (UNKNOWN 04/10/16) tramadol (04/10/16) Reconcile Medications Baclofen 10 MG TABLET 1-2 TAB PO TID PRN muscle strain Clindamycin HCl 300 MG CAPSULE 1 CAP PO 4 TIMES/DAY infection x 10 days Clindamycin HCl (Cleocin HCl) 300 MG CAPSULE 1 CAP PO TID infection Cyclobenzaprine HCl 5 MG TABLET 1 TAB PO TIDPRN PRN pain Hydrocodone/Acetaminophen (Vicodin 5-300 MG Tablet) 5 MG-300 MG TABLET 1 TAB PO TID PRN pain eight... [id number] Hydrocodone/Acetaminophen ([place] 5-325 Tablet) 5 MG-325 MG TABLET 1 TAB PO 4 TIMES/DAY PRN pain Ibuprofen 800 MG TABLET 1 TAB PO TID PRN pain Ibuprofen 800 MG TABLET 1 TAB PO Q6PRN PRN pain Ibuprofen 600 MG TABLET 1 TAB PO Q6PRN PRN pain with food Oxycodone HCl/Acetaminophen (Percocet 5-325 MG Tablet) 5 MG-325 MG TABLET 1-2 TAB PO Q6P PRN pain Oxycodone HCl/Acetaminophen (Percocet 5-325 MG Tablet) 5 MG-325 MG TABLET 1 TAB PO BID PRN pain Oxycodone HCl/Acetaminophen (Percocet 5-325 MG Tablet) 5 MG-325 MG TABLET 1 TAB PO Q6P PRN severe pain Oxycodone HCl/Acetaminophen (Percocet 5-325 MG Tablet) 5 MG-325 MG TABLET 1-2 TAB PO 4 TIMES/DAY PRN severe pain Triage Note: PER PT RIPPING UP FLOOR AND PULLED UP ON NIKOLSKI BAR AND IT HIT ME IN SIDE OF HEAD, SUSTAINED LAC ALSO CO L RIB PAIN 1/2 LAC TO L EYEBROW. UNKNOWN TETANUS Triage Nurses Notes Reviewed? yes Onset: Abrupt Severity: mild Severity Numbers: 4 Location: frontal Method of Injury: direct blow Loss of Consciousness: no loss of consciousness Associated Symptoms: L RIB PAIN HPI: This is a 36-year-old male presents to ER for evaluation status post sustaining laceration to the left side of his face just prior to arrival while working up drew in his kitchen he states he was hit in the face with a crowbar. There is no loss of consciousness. He denies headache or other trauma no vision changes no neck or back pain. Patient states that his left ribs have been sore from the twisting and pulling with the crowbar all today it is worse with inspiration. He denies cough or hemoptysis. No fever no chills. Past History Travel History Traveled to [place] past 21 day No Medical History Any Pertinent Medical History? 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 No Review of Systems Review of Systems Constitutional: Reports: no symptoms, see HPI. Comments Review of systems: See HPI, All other systems negative. Constitutional, no chills no fever HEENT: no sore throat no congestio Cardiovascular: No chest pain Skin: no rashes, no change in skin Respiratory: No dyspnea no cough no sputum GI: No nausea no vomiting, no diarrhea Muscle skeletal: No joint pain, no back pain Neurologic: , no headache Heme/endocrine: No bruising Physical Exam Physical Exam General Appearance: well developed/nourished, no apparent distress, alert, awake Cranial Nerves: normal hearing, normal speech, PERRL Comments: Well-developed well-nourished patient in no apparent distress. Head/Face: 1 cm laceration noted over the left lateral eyebrow, no active bleeding there is no other scalp or facial injury no facial swelling Eyes: PERRL, EOMI, no conjunctival injection. No nystagmus no subconjunctival hemorrhage Ear:External auditory canals clear Nose: atraumatic.Normal inspection Throat: Moist mucous membranes.Pharynx normal Neck: Supple, no lymphadenopathy, FROM Back: FROM Cardiovascular: Regular rate and rhythms no murmurs Respiratory: Chest tender to palpation over the left axilla no ecchymosis no obvious deformity no crepitus There were no bony deformities, no asymmetry. No respiratory distress. Patient speaking in full complete sentences. Breath sounds clear to auscultation bilaterally: NO W/R/R Extremities: full range of motion Neuro: awake, alert, and oriented to person, place and time. There were no obvious focal neurologic abnormalities. Skin: Warm & dry;No appreciable rash on exposed skin Psych: Mood affect normal, normal memory normal judgment. Diagram Head: 1) Laceration as described above Progress Differential Diagnosis: facial fracture, globe injury, ICH, skull fracture, RIB FX, CONTUSION, Plan of Care: Patient medicated Percocet wound anesthetized with lidocaine 1% 4 mL sutures 2 placed by myself patient tolerated procedure well discussed with patient plan of care return precautions were discussed at length your current 7 days for suture removal. Wound edges Wo were well approximated. Discussed with him his x-ray findings. Patient feels comfortable plan and discharge at this time cleared for discharge Diagnostic Imaging: Viewed by Me: Radiology Read. Discussed w/RAD: Radiology Read. Radiology Impression: PATIENT: SAMUEL YAO PRESENT AGE: 36 PATIENT ACCOUNT NO: [id number] : 80 LOCATION: [facility] ORDERING PHYSICIAN: Samuel MONTGOMERY SERVICE DATE: 02/10/17 EXAM TYPE: RAD - XRY- RIBS UNILATERAL-LEFT EXAMINATION: XR RIBS, LEFT CLINICAL INFORMATION: Left rib pain using crowbar. COMPARISON: Chest radiograph June 28, 2015. TECHNIQUE: AP view of the chest and 3 views of the left ribs are obtained. FINDINGS: Symmetric lung inflation. There is no focal consolidation, pleural effusion, or pneumothorax. Cardiac silhouette size is normal. There are no acute osseous findings. No displaced rib fractures. IMPRESSION: No acute pulmonary process. No displaced rib fractures. DICTATED BY: Daren Stern MD DATE/TIME DICTATED:5 REMNANTS CUTTER:JEFF DATE/TIME TRANSCRIBED:02/11/175 CONFIDENTIAL, DO NOT COPY WITHOUT APPROPRIATE AUTHORIZATION. <Electronically signed in Other Vendor System> SIGNED BY: Daern Stern MD 02/11/17 0013 Departure Departure Time of Disposition: 0026 Disposition: HOME OR SELF CARE Condition: Stable Clinical Impression Primary Impression: Facial laceration Secondary Impressions: Chest wall muscle strain Referrals: Patient Has No Primary Care Dr (PCP/Family) Additional Instructions: Rest ice Tylenol Motrin for pain. PERCOCET for breakthroughpain. Flexeril as directed. Keep area clean and covered as discussed, bacitracin daily. Return to ER in 7- 10 days for suture removal. Please understand that foreign bodies such as glass or wood may not be visible to the naked eye or on plain x-rays. If the wound becomes red, swollen, increasingly more painful or if there is any drainage from the wound, please have it reevaluated by a physician for the possibility of a retained foreign body. Departure Forms: Customer Survey General Discharge Information Prescriptions: Current Visit Scripts Oxycodone HCl/Acetaminophen (Percocet 5-325 MG Tablet) 1 TAB PO BID PRN pain #6 TAB Cyclobenzaprine HCl 1 TAB PO TIDPRN PRN pain #12 TAB Procedures Laceration/Wound Repair Laceration/Wound Repair: Wound Location: face Wound's Depth, Shape: linear, superficial Wound Length (cm): 1 Wound Explored: clean, no foreign body removed, irrigated extensively Irrigated w/ Saline (ccs): 200 Betadine Prep? Yes Anesthesia: 1% lidocaine Volume Anesthetic (ccs): 4 Wound Repaired With: sutures, Steri-strips Suture Size/Type: 4:0 Number of Sutures: 2 Sterile Dressing Applied: Yes Date of Last Tetanus: 02/11/17 Tetanus Status: up to date
--- NOTE | 2017-02-11 00:13 | RADIOLOGY REPORT ---
EXAMINATION: XR RIBS, LEFT CLINICAL INFORMATION: Left rib pain using crowbar. COMPARISON: Chest radiograph June 28, 2015. TECHNIQUE: AP view of the chest and 3 views of the left ribs are obtained. FINDINGS: Symmetric lung inflation. There is no focal consolidation, pleural effusion, or pneumothorax. Cardiac silhouette size is normal. There are no acute osseous findings. No displaced rib fractures. IMPRESSION: No acute pulmonary process. No displaced rib fractures.
[2017-02-11] MEDS ORDERED: CYCLOBENZAPRINE5 M2 PO (00:28)
[2017-02-11] MEDS ORDERED: PERCOCET 5-3251 EACH PO (00:28)
== END 2017-02-11 00:43 ==
LOC: ERH 22:02
DX: S01.81XA Laceration without foreign body of other part of head, initial encounter (principal); S29.011A Strain of muscle and tendon of front wall of thorax, initial encounter; W22.8XXA Striking against or struck by other objects, initial encounter; Y92.000 Kitchen of unspecified non-institutional (private) residence as the place of occurrence of the external cause; Y93.E9 Activity, other interior property and clothing maintenance
CPT/HCPCS: 71100-LT; 90471; 90714

== ENCOUNTER 2017-02-25 06:27 | Emergency (ER) | payer OTHER ==
[~2017-02-25] VITALS: Ht 177.8 cm; Wt 86.2 kg
[~2017-02-25 06:27] MED LIST changes: +CYCLOBENZAPRINE5 M2 PO
[2017-02-25 06:58] VITALS: BP 132/80
--- NOTE | 2017-02-25 07:11 | ED GENERAL ADULT ---
History of Present Illness General Chief Complaint: Sore Throat, Dental Pain Stated Complaint: " LOWER LT SIDE TOOTH PAIN" Source: patient Exam Limitations: no limitations Vital Signs & Intake/Output Vital Signs & Intake/Output Vital Signs Date Time Temp Pulse Resp B/P B/P Pulse O2 O2 Flow FiO2 Mean Ox Delivery Rate 02/25 0658 97.3 91 20 132/80 95 Room Air Allergies Coded Allergies: venom-honey bee (bee venom (honey bee)) (Severe, UNKNOWN 04/10/16) amoxicillin (UNKNOWN 04/10/16) tramadol (04/10/16) Reconcile Medications Clarithromycin 250 MG TABLET 1 TAB PO BID DENTAL INFECTION Ibuprofen 600 MG TABLET 1 TAB PO TID PAIN with food Triage Note: PT TO TRIAGE C/O LOWER DENTAL PAIN. HAS APPT WITH ORAL SURGEON WEDNESDAY TO HAVE TOOTH REMOVED. PT REPORTS DENTIST ISNT OPEN UNTIL 11 AND PAIN IS UNBEARABLE. DID NOT TAKE ANY PAIN MEDICATION THIS AM. Triage Nurses Notes Reviewed? yes Onset: Gradual Duration: day(s): Timing: recent history HPI: 02/25/17 36-year-old man presents to the emergency department complaining of left lower toothache. He says he has a history of dental caries. He says he is scheduled for an extraction and has an appointment with the oral surgeon next week. The onset of the symptoms of been have been gradual, the duration has been several days, the severity is significant as his symptoms required him to come to the emergency department for care Past History Travel History Traveled to [place] past 21 day No Medical History Any Pertinent Medical History? 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 No Review of Systems Review of Systems Constitutional: Denies: fever. EENTM: Reports: see HPI. Denies: visual changes. Respiratory: Denies: short of breath. Cardiovascular: Denies: chest pain. GI: Denies: abdominal pain. Genitourinary: Reports: no symptoms. Musculoskeletal: Reports: no symptoms. Skin: Reports: no symptoms. Neurological/Psychological: Reports: no symptoms. Hematologic/Endocrine: Reports: no symptoms. Immunologic/Allergic: Reports: no symptoms. Physical Exam Physical Exam General Appearance: no apparent distress, alert, awake, anxious Head: atraumatic Eyes: Bilateral: normal appearance, PERRL, EOMI. Ears, Nose, Throat: normal pharynx, normal ENT inspection Neck: normal inspection, supple Respiratory: normal breath sounds, chest non-tender, no respiratory distress Cardiovascular: regular rate/rhythm Peripheral Pulses: 4+ radial (R), 4+ radial (L) Gastrointestinal: non-tender Back: normal range of motion Extremities: normal inspection Neurologic/Psych: no motor/sensory deficits, awake, alert, oriented x 3, normal gait Skin: intact, normal color Comments: The patient has dental caries and mild gingivitis at the left canine tooth. There is no abscess. No pharyngitis. No adenopathy. He has free range of motion of the jaw. He was treated with Toradol. Given by mouth antibiotics and nonsteroidals as needed. He was instructed to follow-up with the oral surgeon as scheduled. Core Measures ACS in differential dx? No CVA/TIA Diagnosis: No Sepsis Present: No Sepsis Focused Exam Completed? No Progress Differential Diagnoses I considered the following diagnoses in my evaluation of the patient: [Dental abscess, Dash angina, dental caries, substance abuse] Plan of Care: Follow-up the oral surgeon as scheduled. Initial ED EKG: none Departure Departure Disposition: HOME OR SELF CARE Condition: Stable Clinical Impression Primary Impression: Toothache Referrals: Patient Has No Primary Care Dr (PCP/Family) Departure Forms: Customer Survey General Discharge Information Prescriptions: Current Visit Scripts Ibuprofen 1 TAB PO TID #20 TAB with food Clarithromycin 1 TAB PO BID #20 TAB Critical Care Note Critical Care Note Critical Care Time: non-applicable
[2017-02-25] MEDS ORDERED: IBUPROFEN600 M1 PO (07:49)
[2017-02-25] MEDS ORDERED: CLARITHROMYCIN250 M1 PO (07:49)
== END 2017-02-25 07:54 ==
LOC: ERH 06:27
DX: K08.89 Other specified disorders of teeth and supporting structures (principal)
CPT/HCPCS: 96372; J1885

== ENCOUNTER 2017-09-28 17:37 | Emergency (ER) | payer OTHER ==
[~2017-09-28] VITALS: Ht 175.3 cm; Wt 86.2 kg
[~2017-09-28 17:37] MED LIST changes: +CLARITHROMYCIN250 M1 PO; +HYDROXYZINE HCL25 M2 PO; +IBUPROFEN400 M1 PO; +KEFLEX500 M1 PO; +MOBIC15 M1 PO; +PREDNISONE20 M1 PO; +VIBRAMYCIN100 MG PO
[2017-09-28 17:40] VITALS: BP 158/84
[2017-09-28] MEDS ORDERED: PERCOCET 5-3251 EACH PO (18:41)
[2017-09-28] MEDS ORDERED: IBUPROFEN600 M1 PO (18:41)
--- NOTE | 2017-09-28 18:41 | ED GENERAL ADULT ---
History of Present Illness General Chief Complaint: Hand or Wrist Injury Stated Complaint: CUT FINGER WITH CHAINSAW, NEEDS PAIN MEDS? Source: patient Exam Limitations: no limitations Vital Signs & Intake/Output Vital Signs & Intake/Output Vital Signs Date Time Temp Pulse Resp B/P B/P Pulse O2 O2 Flow FiO2 Mean Ox Delivery Rate 09/28 1740 97.0 100 16 158/84 97 Room Air Allergies Coded Allergies: venom-honey bee (bee venom (honey bee)) (Severe, ANAPHYLAXIS 09/03/17) amoxicillin (UNKNOWN PER PT TOLD A KID HE IS ALLERGIC 09/03/17) tramadol (HIVES AND CHEST TIGHTNESS 09/03/17) Reconcile Medications Cephalexin (Keflex) 500 MG CAPSULE 1 CAP PO TID SKIN Doxycycline Hyclate (Vibramycin) 100 MG CAPSULE 1 CAP PO BID ifn Ibuprofen 600 MG TABLET 1 TAB PO TID PRN pain with food Meloxicam (Mobic) 15 MG TABLET 1 TAB PO DAILY PRN PAIN Oxycodone HCl/Acetaminophen (Percocet 5-325 MG Tablet) 5 MG-325 MG TABLET 1 TAB PO Q4-6 PRN PRN pain Triage Note: PT STATES THAT HE WAS SEEN AT [facility] THIS AM AFTER HE CUT HIS L HAND INDEX AND POINTER FINGER WITH CHAIN SAW, STATES THAT THEY WERE UNABLE TO SUTURE THE FINGERS . STATES THAT HE IS HAVING A LOT OF PAIN AND THEY DID NOT SEND HIM HOME WITH ANYTHING Triage Nurses Notes Reviewed? yes Onset: Abrupt Duration: hour(s): Timing: single episode today HPI: 37-year-old right-hand dominant male with no significant past medical history presenting with finger lacerations to his left index and middle finger sustained on a chain saw this morning. Patient was evaluated. Hospital, had unremarkable x-ray and his tetanus was updated. The wounds were cleansed and dressed, was told that he did not require suture repair at that time. States that he was sent home with instructions to use [id number] medications as needed for pain. Has been using ibuprofen since he has left without any relief. Reports 10 out of 10 excruciating pain. Denies numbness or paresthesias. (Michelle Danielle) Past History Travel History Traveled to [place] past 21 day No Medical History Any Pertinent Medical History? 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 No (Michelle Danielle) Review of Systems Review of Systems Constitutional: Reports: no symptoms. EENTM: Reports: no symptoms. Respiratory: Reports: no symptoms. Cardiovascular: Reports: no symptoms. GI: Reports: no symptoms. Genitourinary: Reports: no symptoms. Musculoskeletal: Reports: see HPI. Skin: Reports: see HPI. Neurological/Psychological: Reports: no symptoms. Hematologic/Endocrine: Reports: no symptoms. Immunologic/Allergic: Reports: no symptoms. All Other Systems: Reviewed and Negative (Michelle Danielle) Physical Exam Physical Exam General Appearance: well developed/nourished, no apparent distress, alert, awake , comfortable Head: atraumatic, normal appearance Eyes: Bilateral: normal appearance. Neck: normal inspection Respiratory: normal breath sounds Cardiovascular: regular rate/rhythm Gastrointestinal: soft, non-tender Back: normal inspection Extremities: left hand: Skin avulsion to the distal phalanx of the left index finger and mascerated laceration to the distal phalanx of the middle finger. unrestricted range of motion at all MCPs/PIPs/DIPs. Sensation intact to median/ radial/ulnar nerves. Motor strength 5 out of 5 with finger flexion, extension, interosseous strength. Radial pulse 2+. Neurologic/Psych: awake, alert, oriented x 3, normal gait, normal mood/affect Skin: normal color, warm/dry Core Measures ACS in differential dx? No CVA/TIA Diagnosis: No Sepsis Present: No Sepsis Focused Exam Completed? No (Michelle Danielle) Progress Differential Diagnoses I considered the following diagnoses in my evaluation of the patient: [Skin avulsion versus laceration versus fracture versus tendon injury versus nerve injury versus vascular injury] Plan of Care: Current Medications Sig/[place] Start time Last Medication Dose Stop Time Status Admin Oxycodone/ 1 TAB ONCE ONE 09/28 1844 UNVr Acetaminophen 09/28 1845 (Percocet) Dressing was taken down to evaluate wounds, patient states they have already been extensively cleansed and irrigated, new dressing was placed. Given Rx ibuprofen and Percocet as needed for pain. Will follow up with a primary care provider for reevaluation and given strict return precautions. Initial ED EKG: none (Michelle Danielle) Departure Departure Disposition: HOME OR SELF CARE Condition: Stable Clinical Impression Primary Impression: Finger laceration Referrals: Patient Has No Primary Care Dr (PCP/Family) Additional Instructions: He is Motrin and Percocet as needed for pain. Follow-up with your primary care provider for reevaluation. Return to the emergency department for any normal worsening symptoms. Departure Forms: Customer Survey General Discharge Information Prescriptions: Current Visit Scripts Ibuprofen 1 TAB PO TID PRN pain #30 TAB with food Oxycodone HCl/Acetaminophen (Percocet 5-325 MG Tablet) 1 TAB PO Q4-6 PRN PRN pain #12 TAB (Michelle Danielle) PA/DRUG ABUSE COUNSELOR Co-Sign Statement Statement: ED Attending supervision documentation- [] I saw and evaluated the patient. I have also reviewed all the pertinent lab results and diagnostic results. I agree with the findings and the plan of care as documented in the PA's/DRUG ABUSE COUNSELOR's documentation. [X] I have reviewed the ED Record and agree with the PA's/DRUG ABUSE COUNSELOR's documentation. [] Additions or exceptions (if any) to the PAs/DRUG ABUSE COUNSELOR's note and plan are summarized below: [] (Kristyn TOTH,Noah Huynh) Critical Care Note Critical Care Note Critical Care Time: non-applicable (Michelle Danielle)
== END 2017-09-28 18:51 ==
LOC: ERH 17:37
DX: S61.211A Laceration without foreign body of left index finger without damage to nail, initial encounter (principal); S61.213A Laceration without foreign body of left middle finger without damage to nail, initial encounter; W29.3XXA Contact with powered garden and outdoor hand tools and machinery, initial encounter; Y92.9 Unspecified place or not applicable; Y93.9 Activity, unspecified

== ENCOUNTER 2017-11-02 09:17 | Emergency (ER) | payer OTHER ==
[~2017-11-02] VITALS: Ht 177.8 cm; Wt 86.2 kg
[2017-11-02 09:30] VITALS: BP 137/99
[2017-11-02] MEDS ORDERED: CLEOCIN HCL300 M1 PO (09:46)
--- NOTE | 2017-11-02 09:54 | ED THROAT/DENTAL COMPLAINT ---
History of Present Illness General Chief Complaint: Sore Throat, Dental Pain Stated Complaint: TOOTH PAIN Source: patient Exam Limitations: no limitations Vital Signs & Intake/Output Vital Signs & Intake/Output Vital Signs Date Time Temp Pulse Resp B/P B/P Pulse O2 O2 Flow FiO2 Mean Ox Delivery Rate 11/02 0930 98.4 89 18 137/99 98 Room Air Allergies Coded Allergies: venom-honey bee (bee venom (honey bee)) (Severe, ANAPHYLAXIS 09/03/17) amoxicillin (UNKNOWN PER PT TOLD A KID HE IS ALLERGIC 09/03/17) tramadol (HIVES AND CHEST TIGHTNESS 09/03/17) Reconcile Medications Clindamycin HCl (Cleocin HCl) 300 MG CAPSULE 1 CAP PO TID ANTIBIOTIC, INFECTION (Reported) Hydrocodone/Acetaminophen ([place] 5-325 Tablet) 5 MG-325 MG TABLET 1 TAB PO Q4- 6 PRN PRN PAIN Ibuprofen 600 MG TABLET 1 TAB PO TID PRN pain with food Triage Note: 37 YO MALE TO TRIAGE FOR TOOTH PAIN, STATES SCHEDUALED FOR ROOT CANAL ON WEDNESDAY. STATES CURRENTLY TAKING 800MG MOTRIN AND CLINDAMYCIN. Triage Nurses Notes Reviewed? yes Onset: Abrupt Duration: week(s): (2), constant, continues in ED, getting worse Timing: recent history Injury Environment: home Severity: moderate, severe Severity Numbers: 8 No Modifying Factors: none HPI: 37-year-old male history of chronic dental pain and chronic back pain presents for evaluation of dental pain. Patient reports the pain is been present for a couple weeks and getting worse. He states he saw a dentist and he needs to get a root canal scheduled for next Wednesday. He states he currently is on clindamycin and ibuprofen which she has been taking but states the pain is continuing to get worse. The pain is located in the anterior lower gums and teeth. The pain is worse with touching the area. Denies any swelling fever difficulty breathing difficulty swallowing or drooling. No nausea or vomiting. (Deondre Hicks) Past History Travel History Traveled to [place] past 21 day No Medical History Any Pertinent Medical History? 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 No (Deondre Hicks) Review of Systems Review of Systems Constitutional: Reports: no symptoms. EENTM: Reports: mouth pain, tooth pain. Respiratory: Reports: no symptoms. Cardiovascular: Reports: no symptoms. GI: Reports: no symptoms. Genitourinary: Reports: no symptoms. Musculoskeletal: Reports: no symptoms. Skin: Reports: no symptoms. Neurological/Psychological: Reports: no symptoms. Hematologic/Endocrine: Reports: no symptoms. Immunologic/Allergic: Reports: no symptoms. All Other Systems: Reviewed and Negative (Deondre Hicks) Physical Exam Physical Exam General Appearance: well developed/nourished, no apparent distress, alert, awake Head: atraumatic, normal appearance Eyes: Bilateral: normal appearance, PERRL, EOMI. Ears: Bilateral: canal normal, Tympanic normal. Nose: normal inspection Mouth/Throat: MULTIPLE MISSING ROTTING CRACKED TEETH. PATIENT POINTS TO THE #26 AND 27TH TEETH THE LOCATION OF THE PAIN. tHERE IS NO ERYTHEMA OR SWELLING IN THIS AREA THE TEETH DO NOT APPEAR TO BE LOOSE. tHERE IS A LARGE AMOUNT OF PLAQUE PRESENT. nO SWELLING NO LYMPHADENOPATHY NO TRISMUS PATIENT IS HANDLING SECRETIONS NO TONSILLAR EXUDATE NO UVULAR DEVIATION NO SWELLING OR ERYTHEMA OF THE BUCCAL MUCOSA Neck: normal inspection, supple, full range of motion, NO LYMPHADENOPATHY Cardiovascular/Respiratory: normal breath sounds, normal peripheral pulses, regular rate/rhythm, no respiratory distress Gastrointestinal: SOFT NONTENDER Back: normal inspection, normal range of motion, no vertebral tenderness Neurologic/Psych: no motor/sensory deficits, awake, alert, oriented x 3, normal gait Skin: intact, normal color, warm/dry Core Measures ACS in differential dx? No Sepsis Present: No Sepsis Focused Exam Completed? No (Deondre Hicks) Progress Differential Diagnosis: carious tooth, epiglottitis, Ludwigs angina, odontogenic abscess, arvin-tonsillar abscess, stomatitis/gingivitis, tooth fracture, DENTAL ABSCESS Plan of Care: Patient is here for evaluation of ongoing dental pain. On exam he has multiple missing riding a cracked teeth. There is no evidence of dental abscess or infection at this time as there is no lymphadenopathy swelling trismus or focal fluctuant areas. Patient is currently taking clindamycin advised him to continue this for the full course. Continue ibuprofen as needed he is given a prescription of [place] to use for severe pain only. Advised applying ice follow- up with dentist as soon as possible discussed return precautions patient agrees the plan (Deondre Hicks) Departure Departure Disposition: HOME OR SELF CARE Condition: Stable Clinical Impression Primary Impression: Chronic dental pain Referrals: Patient Has No Primary Care Dr (PCP/Family) Additional Instructions: Continue antibiotics and ibuprofen as directed. [place] for severe pain only. Follow-up with your dentist on Wednesday as scheduled. Return if unable tolerate fluids worsening pain fever or any other concerns. Please note that there might be incidental findings in your evaluation that are unrelated to the current emergency department visit. Please notify your primary care doctor about this emergency department visit in order to obtain and review all of the testing performed so that these incidental findings can be monitored as needed. If you had an x-ray performed, please understand that some fractures or other findings may not be seen on the initial set of x-rays. If your symptoms persist you might need a repeat set of x-rays to check for such a fracture. If you had a laceration evaluated, please understand that foreign bodies such as glass or wood may not be visible to the naked eye or on plain x-rays. If the wound becomes red, swollen, increasingly more painful or if there is any drainage from the wound, please have it reevaluated by a physician for the possibility of a retained foreign body. If you're unable to follow up as outlined in the discharge instructions please return to the emergency department. Thank you for choosing the [facility] Emergency Department for your care. It was a pleasure to serve you today. Departure Forms: Customer Survey General Discharge Information Prescriptions: Current Visit Scripts Hydrocodone/Acetaminophen ([place] 5-325 Tablet) 1 TAB PO Q4-6 PRN PRN PAIN #5 TAB (Deondre Hicks) PA/FARM SERVICE ADVISER Co-Sign Statement Statement: ED Attending supervision documentation- I saw and evaluated the patient. I have also reviewed all the pertinent lab results and diagnostic results. I agree with the findings and the plan of care as documented in the PA's/FARM SERVICE ADVISER's documentation. x I have reviewed the ED Record and agree with the PA's/FARM SERVICE ADVISER's documentation. [] Additions or exceptions (if any) to the PAs/FARM SERVICE ADVISER's note and plan are summarized below: [] (Oscar TOTH,Reinaldo)
[2017-11-02] MEDS ORDERED: NORCO 5-325 TA1 EACH PO (09:55)
== END 2017-11-02 10:02 ==
LOC: ERH 09:17
DX: K08.89 Other specified disorders of teeth and supporting structures (principal)